=== PATIENT | male | born 1930 | race Caucasian/White ===

== ENCOUNTER 2016-10-18 10:06 | Observation (INO) ==
[2016-10-18] MEDS ORDERED: Ondansetron 4 MG/2 ML VIAL IVP PRN (12:05)
[2016-10-18] MEDS ORDERED: Naloxone 0.4 MG/ML INJ IVP PRN (12:05)
[2016-10-18] MEDS ORDERED: *HR* LORazepam 2 MG/ML VIAL IVP PRN (12:12)
--- NOTE | 2016-10-18 12:29 | Internal Med History&Physical ---
Date of Encounter: 10/18/16 Time of Encounter: 12:00 Assessment and Plan (1) Generalized convulsive seizure Current visit: Yes Status: Acute Noted to have a single episode of generalized tonic-clonic seizure. No metabolic abnormality, no symptoms or signs of infection. CT head done in the emergency room shows no acute abnormality/bleed. Noted to have slightly elevated troponin. Continue telemetry monitoring and trend troponins. Seizure precautions. When necessary IV Ativan for recurrent seizures. EEG. Neurology consult. (2) Essential hypertension Current visit: Yes Status: Chronic Resume home medications. (3) Gout Current visit: Yes Status: Chronic Chronic gouty arthritis. Continue allopurinol. Qualifiers: Gout site: multiple sites Gout etiology: unspecified cause Chronicity: chronic Qualified Code(s): M1A.09X0 - Idiopathic chronic gout, multiple sites , without tophus (tophi) (4) GERD (gastroesophageal reflux disease) Current visit: Yes Status: Chronic Continue PPI. Qualifiers: Esophagitis presence: esophagitis presence not specified Qualified Code(s) : K21.9 - Gastro-esophageal reflux disease without esophagitis (5) Pacemaker Current visit: Yes Status: Chronic Internal Medicine - H&P: HPI Chief complaint: Seizure Admitted From: Emergency Dept Plans for Post Hospital Care: Home History of present illness: Mr. Lambert is a 85 year old male with history of hypertension, gout was brought in by family for evaluation of an episode of possible seizure-like activity. Patient was in his usual state of health until yesterday. He had nonspecific complaints of not feeling well and malaise yesterday. Patient's was woken up this morning as the patient let out a loud scream and she found him to be contracted and jerking both his hands and legs and not really responding to her. He clenched his teeth but no reported tongue bite, urinary or fecal incontinence. He continued in this state for about 10-15 minutes according to her and did not respond to being shaken, slapped on the face. EMS was called and patient calmed down and was not thrashing anymore by the time they reached. He did have some amnesia after the event, which is now improved. However, he still cannot recall the episode. No history of head injury, recent infections or antibiotic use. No new medications. He reports no chest pain, shortness of breath, palpitations or dizziness at baseline. He has no weakness in his hands or legs, no tingling or numbness, no headache or blurred vision. He did have an episode of seizure-like activity several years ago, which was thought to be due to her reaction to hydrochlorothiazide, which has been since stopped. He has never been on antiepileptic medication. Past Med Surg Social Fam HX - Past Medical History Medical history: GERD, hyperlipidemia, hypertension, SVT (Status post ablation and pacemaker placement), other (Gout) Psychiatric history: panic disorder - Past Surgical History Surgical History: herniorrhaphy (Bilateral inguinal hernia repairs), orthopedic , other (Left wrist surgery), pacemaker - Social History Smoking Status: Never smoker Alcohol use: none Drug use: none Occupational status: retired Current living situation: Home, With Family Activity Level: Independent ambulation Recent Out of Country Travel Within the Last 8 Weeks: No Exposure or Possible Exposure to Illness During Travel: No - Family History Father Hx Family Neurologic Disorders: Yes (Stroke) Internal Medicine - H&P: Meds Allopurinol [Zyloprim] 150 mg PO DAILY 10/18/16 [History] Aspirin [Ecotrin] 81 mg PO DAILY 10/18/16 [History] Calcium Carbonate/Vitamin D3 [Calcium 600 + Vit D Tablet] 1 each PO DAILY [History] Losartan [Cozaar] 50 mg PO DAILY 10/18/16 [History] Melatonin 3 mg PO HS 10/18/16 [History] Metoprolol [Lopressor] 100 mg PO BID 10/18/16 [History] Multivitamin [Multi-Day Vitamins] 1 each PO DAILY 10/18/16 [History] Omeprazole 20 mg PO Q48H 10/18/16 [History] Terazosin [Hytrin] 5 mg PO HS 10/18/16 [History] Wheat Dextrin [Benefiber] 1 each PO DAILY 10/18/16 [History] Zolpidem [Ambien] 10 mg PO HS 10/18/16 [History] Allergies acetaminophen [From Percocet] Allergy (Verified 10/18/16 08:05) See Comments hydrochlorothiazide Allergy (Verified 10/18/16 08:05) Seizure Oxycodone [From Percocet] Allergy (Verified 10/18/16 08:05) See Comments Penicillins [PCN] Allergy (Verified 10/18/16 08:05) See Comments sulfamethoxazole [From Bactrim] Allergy (Verified 10/18/16 08:05) See Comments trimethoprim [From Bactrim] Allergy (Verified 10/18/16 08:05) See Comments All Systems PM: A 10-system review of systems was performed and is negative for pertinent findings except as documented above in the HPI. - Constitutional Constitutional: no chills, no fever(s), no night sweats - EENT Eyes: no change in vision, no discharge, no pain, no photophobia Ears: no ear discharge, no ear pain, no tinnitus Nose, mouth and throat: no dysphagia, no nasal discharge, no neck pain, no sore throat - Cardiovascular Cardiovascular ROS IM: no chest pain, no diaphoresis, no dyspnea, no lightheadedness, no palpitations, no syncope - Respiratory Respiratory: no cough, no dyspnea, no wheezing, no excessive phlegm production - Gastrointestinal Gastrointestinal: no abdominal pain, no diarrhea, no hematemesis, no hematochezia, no melena, no nausea, no vomiting - Musculoskeletal Musculoskeletal ROS IM: no numbness, no tingling - Integumentary Integumentary IM: no rash, no unusual bruising - Neurological Neurological ROS: behavioral changes, confusion, convulsions - Hematologic/Lymphatic Hematologic/Lymphatic: no easy bruising - Constitutional General appearance: Present: A&O X 3, answers questions appropriately - Head Head exam: Present: atraumatic, normocephalic - Eye Eye exam: Present: PERRL, conjuntiva pink, sclera anicteric Pupils: Present: PERRL - Neck Neck exam general surgery: Present: supple, trachea midline. Absent: lymphadenopathy - Respiratory Respiratory exam: Present: CTAB. Absent: accessory muscle use, rales, rhonchi, wheezes - Cardiovascular Cardiovascular exam: Present: RRR, +S1, +S2. Absent: diastolic murmur, gallop, rubs, systolic murmur - GI/Abdominal GI/Abdominal exam: Present: normal bowel sounds, soft, no peritoneal signs. Absent: distended, tenderness - Extremities Exam Extremities exam: Present: full ROM, warm, radial pulses palpable and symetrical. Absent: calf tenderness, cyanotic, pedal edema - Neurological Exam Neurological exam: Present: CN II-XII intact, oriented X3, no focal deficits. Absent: pronater drift, facial droop, speech deficit - Skin Skin exam: Present: dry, intact Internal Med - H&P Results - EKG Data -: EKG Interpreted by Myself - EKG Data Prior EKG available for review: yes When compared to previous EKG: there is no significant change EKG comments: 10/18/16 14:45 Ventricular paced rhythm
--- NOTE | 2016-10-18 13:03 | Neurology - Consult Note ---
<Sean De - Last Filed: 10/18/16 13:41> Date of Encounter: 10/18/16 Time of Encounter: 13:00 Assessment and Plan (1) Generalized convulsive seizure Current Visit: Yes Status: Acute Patient's story seems concerning for a generalized tonic-clonic seizure. reports convulsions of the upper and lower extremities with rigidity. Also reports he was unresponsive during this time. Patient appeared postictal to her after the event. No tongue biting, loss of bowel or bladder function. He is currently at his baseline. CT scan in the emergency department shows no acute abnormalities. His lab work is unremarkable and metabolic etiology of his symptoms seems less likely. He has not felt well for the last few days but he was afebilre in the emergency department with a normal white count and no nuchal rigidity so suspicion of infectious etiology is low as well. Will start Keppra 250mg BID. Will discuss with Dr. Gutierrez for further recommendations. History of Present Illness Chief complaint: Seizure-like activity HPI: Mr. Lambert is a 85 year old male history of hypertension, hyperlipidemia, gout , status post ablation for atrial fibrillation who presents to the hospital as a transferred to seizure-like activity. Patient is accompanied by who reports that around 06 100 this morning the patient rolled over during his sleep and woke her up. She reports that roughly 2 minutes later he displayed convulsions of his upper and lower extremities and appeared rigid. She also states he was making noise but was not verbalizing. She reports that he was unresponsive to her and that his eyes were shut. She reports the symptoms lasted for roughly 5-6 minutes and abated on their own. There was no loss of bowel or bladder function. She does report that he was confused up to 30 minutes after the event not knowing where he was what was going on. Patient has no recollection of the event until he was placed in the ambulance. He was taken to emergency department where he had basic labs and a CT scan of the head which was unremarkable for acute findings. Patient transferred for further evaluation. Neurology consulted due to seizure-like activity. He reports that he had what they thought was a seizure in 2010. He reports he started hydrochlorothiazide and 4 days later he developed shaking of his body. He was conscious during this and the medication was stopped and he had no recurrence of symptoms. They report that their son has a history of epilepsy as a child and was medicated until in his teens. He reports that over the last week he has had a head cold with cough and sneezing. No fevers. Reports yesterday he just felt tired and weak. He currently states he feels back to normal and agrees with this. He denies headaches, visual changes, numbness, tingling, weakness, neck pain. Past Med Surg Social Fam HX - Past Medical History Attestation: Yes The following information was validated with the patient. Source: patient Medical history: hyperlipidemia, hypertension Psychiatric history: panic disorder - Social History Smoking Status: Never smoker Alcohol use: none Drug use: none Medications and Allergies Allopurinol [Zyloprim] 150 mg PO DAILY 10/18/16 [History] Aspirin [Ecotrin] 81 mg PO DAILY 10/18/16 [History] Calcium Carbonate/Vitamin D3 [Calcium 600 + Vit D Tablet] 1 each PO DAILY [History] Losartan [Cozaar] 50 mg PO DAILY 10/18/16 [History] Melatonin 3 mg PO HS 10/18/16 [History] Metoprolol [Lopressor] 100 mg PO BID 10/18/16 [History] Multivitamin [Multi-Day Vitamins] 1 each PO DAILY 10/18/16 [History] Omeprazole 20 mg PO Q48H 10/18/16 [History] Terazosin [Hytrin] 5 mg PO HS 10/18/16 [History] Wheat Dextrin [Benefiber] 1 each PO DAILY 10/18/16 [History] Zolpidem [Ambien] 10 mg PO HS 10/18/16 [History] Allergies acetaminophen [From Percocet] Allergy (Verified 10/18/16 08:05) See Comments hydrochlorothiazide Allergy (Verified 10/18/16 08:05) Seizure Oxycodone [From Percocet] Allergy (Verified 10/18/16 08:05) See Comments Penicillins [PCN] Allergy (Verified 10/18/16 08:05) See Comments sulfamethoxazole [From Bactrim] Allergy (Verified 10/18/16 08:05) See Comments trimethoprim [From Bactrim] Allergy (Verified 10/18/16 08:05) See Comments All Systems: A 10-system review of systems was performed and is negative for pertinent findings except as documented above in the HPI. - Constitutional Constitutional ROS IM: weakness, no fever(s) - Cardiovascular Cardiovascular ROS IM: no chest pain - Respiratory Respiratory IM: no cough - Neurological Neurological ROS: confusion (Has returned to baseline), convulsions, tremor(s), weakness, no abnormal speech, no dizziness, no focal weakness, no headache(s), no loss of vision, no numbness, no paresthesias, no sensory deficit Physical Examination - Constitutional General appearance: comfortable - Neurologic Sensorimotor examination: intact Detailed motor examination: grossly full strength in all extremities Detailed sensory examination: intact Mental Status Examination: awake, alert, oriented to person, oriented to place, oriented to time, follows commands appropriately, answers questions appropriately, no aphasia Cranial nerve examination: PERRL, EOMI, sensory to face intact, mastication intact, no facial asymmetry is present, no dysarthria, hearing is intact symmetrically Cerebellar examination: no dysmetria, performs finger to nose and heel to fernandez symmetrically without ataxia Results - Diagnostic Findings Additional findings: CT scan head Consult Discharge Plan - Plan Referrals: Benedicto Rae MD [Primary Care Provider] - <Balwinder Gutierrez I - Last Filed: 10/19/16 13:12> Date of Encounter: 10/18/16 Assessment and Plan (1) Generalized convulsive seizure Current Visit: Yes Status: Acute Pt seen and examined agree with Dr De , findings and documentations, pt has history of one remote seizure in past, no focal findings on exam, description seem to be typical of Seizures, discussed with pt and , i think its reasonable to be on AEDS, will start on KEPPRA 250 mg po bid, increase to 500 BID after one week we can see him back in office Mikal Gutierrez MD History of Present Illness HPI: Mr. Lambert is a 85 year old male All Systems: A 10-system review of systems was performed and is negative for pertinent findings except as documented above in the HPI. Physical Examination - Vital Signs Vital Signs: Initial Vital Signs Temp Pulse Resp BP Pulse Ox 97.9 F 63 15 133/77 96 10/18/16 12:00 10/18/16 12:00 10/18/16 12:00 10/18/16 12:00 10/18/16 12:00 Results - Laboratory Findings CBC and BMP: 10/19/16 01:04 10/19/16 01:04 Abnormal lab findings: Abnormal lab results WBC 11.5 K/mcL (4.3-11.1) H 10/19/16 01:04 RBC 4.15 M/mcL (4.19-5.50) L 10/19/16 01:04 Hgb 12.8 g/dL (12.9-16.9) L 10/19/16 01:04
[2016-10-18] MEDS: levETIRAcetam 250 MG TABLET PO SCH (17:22)
[2016-10-18] MEDS: Metoprolol 100 MG TABLET PO SCH (20:50)
[2016-10-19 01:14] LABS: Basophils % 0.3 %; Eosinophils # 0.3 K/mcL (0.0-0.6); Eosinophils % 2.6 %; Hematocrit 38.1 % (37.5-50.1); Hemoglobin 12.8 g/dL (12.9-16.9); Immature Granulocytes % 0.4 % (0-4); Lymphocytes # 1.7 K/mcL (0.6-4.6); Lymphocytes % 14.7 %; Mean Corpuscular HGB Conc 33.6 g/dL (31.6-35.5); Mean Corpuscular Hemoglobin 30.8 pg (28.0-33.3); Mean Corpuscular Volume 91.8 fL (83.0-100.0); Mean Platelet Volume 10.2 fL (9.4-12.4); Monocytes # 1.3 K/mcL (0.0-1.3); Monocytes % 11.1 %; Neutrophils # 8.1 K/mcL (1.6-8.9); Platelet Count 169 K/mcL (140-400); Red Blood Count 4.15 M/mcL (4.19-5.50); Red Cell Distribution Width 12.5 % (11.5-14.5); Segmented Neutrophils % 70.9 %
[2016-10-19 01:27] LABS: BUN/Creatinine Ratio 14 (6-26); Blood Urea Nitrogen 16 mg/dL (8-26); Calcium 8.6 mg/dL (8.6-10.8); Carbon Dioxide 23 mEq/L (19-29); Chloride 108 mEq/L (98-109); Glucose 98 mg/dL (70-99); Magnesium 2.1 mg/dL (1.6-2.6); Osmolality,Calculated 289 (280-300); Phosphorous 2.8 mg/dL (2.3-4.7); Potassium 3.7 mEq/L (3.5-4.5); Sodium 139 mEq/L (136-145); eGFR For African Americans > 60 (> 60); eGFR For Non-African Americans > 60 (> 60)
[2016-10-19] MEDS: levETIRAcetam 250 MG TABLET PO SCH ×2 (06:32→17:39)
[2016-10-19] MEDS: Cholecalciferol (D-3) 1,000 UNIT TABLET PO SCH (08:57)
[2016-10-19] MEDS: Aspirin Enteric Coated 81 MG Tablet PO SCH (08:57)
[2016-10-19] MEDS: Multivit/Ca/Min/Fe/FA 1 TAB TABLET PO SCH (09:00)
[2016-10-19] MEDS: Metoprolol 100 MG TABLET PO SCH ×2 (09:00→20:57)
--- NOTE | 2016-10-19 09:19 | Internal Med Progress Note ---
Date of Encounter: 10/19/16 Time of Encounter: 09:14 - Assessment and plan (1) Generalized convulsive seizure Current Visit: Yes Status: Acute Assessment and plan: Generalized Convulsive Seizure: - ?Second episode. First was episode was many years back. - Was in post ictal state. - Underwent imaging of the head. - EKG: WNL - Evaluated by Neuro and underwent EEG: no seizure like activity noted. - started on Keppra 250 mg BID now. - will increase to 500 mg BID in 1 week. - follow up with Neuro in 2 weeks as outpatient. - home: late today or early tomorrow if he is more coherent in speech and thought process. (2) Essential hypertension Current Visit: Yes Status: Chronic Assessment and plan: stable and will continue home medications (3) Gout Current Visit: Yes Status: Chronic Assessment and plan: will continue home meds Qualifiers: Gout site: multiple sites Gout etiology: unspecified cause Chronicity: chronic Qualified Code(s): M1A.09X0 - Idiopathic chronic gout, multiple sites , without tophus (tophi) (4) DVT prophylaxis Current Visit: Yes Status: Acute Assessment and plan: SCD - Subjective Interval history: patient seen and examined. still drowsy answers questions but not coherent with thought process. - Constitutional Vitals: Temp Pulse Resp BP Pulse Ox 97.9 F 63 16 159/81 97 10/19/16 07:44 10/19/16 07:44 10/19/16 07:44 10/19/16 07:44 10/19/16 07:44 General appearance: Present: A&O X 3, pleasant, no acute distress - Head Head exam: Present: atraumatic, normocephalic - Eye Eye exam: Present: PERRL, conjuntiva pink, sclera anicteric Pupils: Present: PERRL - Neck Neck exam general surgery: Present: supple, trachea midline. Absent: lymphadenopathy - Respiratory Respiratory exam: Present: CTAB. Absent: accessory muscle use, rales, rhonchi, wheezes - Cardiovascular Cardiovascular exam: Present: RRR, +S1, +S2. Absent: diastolic murmur, gallop, rubs, systolic murmur - GI/Abdominal GI/Abdominal exam: Present: normal bowel sounds, soft, no peritoneal signs. Absent: distended, tenderness - Extremities Exam Extremities exam: Present: warm, radial pulses palpable and symetrical. Absent : calf tenderness, cyanotic, pedal edema - Neurological Exam Neurological exam: Present: CN II-XII intact, oriented X3, no focal deficits. Absent: pronater drift, facial droop, speech deficit - Skin Skin exam: Present: dry, intact Internal Medicine: Result - Labs CBC & Chem 7: 10/19/16 01:04 10/19/16 01:04 Labs: Short CBC 10/19/16 Range/Units 01:04 WBC 11.5 H (4.3-11.1) K/mcL Hgb 12.8 L (12.9-16.9) g/dL Hct 38.1 (37.5-50.1) % Plt Count 169 (140-400) K/mcL Neutrophils # 8.1 (1.6-8.9) K/mcL BMP 10/19/16 01:04 Sodium 139 Potassium 3.7 Chloride 108 Carbon Dioxide 23 BUN 16 Creatinine 1.12 Glucose 98 Calcium 8.6 Cardiac Enzymes 10/18/16 10/18/16 10/19/16 Range/Units 12:42 18:42 01:04 Troponin I 0.00 0.00 0.01 (0-0.03) ng/mL Consult Discharge Plan - Plan Referrals: Benedicto Rae MD [Primary Care Provider] -
--- NOTE | 2016-10-19 13:14 | EEG/EMG/Oth Biometrics Report ---
EEG Procedure Report Date of procedure: 10/18/16 EEG Procedure: Routine EEG Procedure Note: pt with generalized convulsion. Routine EEG Routine 18-channel digital EEG was obtained to rule out any seizure activity or focal abnormalities. FINDINGS: Background rhythm during awake stage shows well-organized, well- developed, average voltage 8 to 9 hertz alpha activity in the posterior regions. It blocks with eye opening and it is bilaterally synchronous and symmetrical. No [id number] discharges or any lateralizing abnormalities are seen. Photic stimulation did not produce any abnormalities. Hyperventilation was not performed. No abnormalities were found during the procedure. Intermittent EMG artifacts were seen. Stage II sleep was not achieved. IMPRESSION: Normal awake study. No epileptiform discharges or any other paroxysmal activities or focal abnormalities seen. Clinical correlation is recommended. note that normal EEG does not exclude the diagnosis of seizures or epilepsy clinical correlation suggested Balwinder Gutierrez MD
[2016-10-20] MEDS: levETIRAcetam 250 MG TABLET PO SCH (05:47)
[2016-10-20 07:02] VITALS: BP 155/82
[2016-10-20] MEDS: Cholecalciferol (D-3) 1,000 UNIT TABLET PO SCH (07:47)
[2016-10-20] MEDS: Aspirin Enteric Coated 81 MG Tablet PO SCH (07:47)
[2016-10-20] MEDS: Multivit/Ca/Min/Fe/FA 1 TAB TABLET PO SCH (07:47)
[2016-10-20] MEDS: Metoprolol 100 MG TABLET PO SCH (07:48)
--- NOTE | 2016-10-20 08:06 | Discharge Summary ---
Date of Encounter: 10/20/16 Time of Encounter: 08:03 - Discharge Diagnosis (1) Generalized convulsive seizure Priority: Primary Status: Acute (2) Essential hypertension Priority: Secondary Status: Chronic (3) Gout Priority: Secondary Status: Chronic Qualifiers: Gout site: multiple sites Gout etiology: unspecified cause Chronicity: chronic Qualified Code(s): M1A.09X0 - Idiopathic chronic gout, multiple sites , without tophus (tophi) (4) DVT prophylaxis Priority: Secondary Status: Acute - Discharge Medications Prescriptions: LevETIRAcetam [Keppra] 250 mg PO Q12HR #30 tablet Home Medications: Allopurinol [Zyloprim] 150 mg PO DAILY 10/18/16 [History] Aspirin [Ecotrin] 81 mg PO DAILY 10/18/16 [History] Calcium Carbonate/Vitamin D3 [Calcium 600 + Vit D Tablet] 1 each PO DAILY [History] Losartan [Cozaar] 50 mg PO DAILY 10/18/16 [History] Melatonin 3 mg PO HS 10/18/16 [History] Metoprolol [Lopressor] 100 mg PO BID 10/18/16 [History] Multivitamin [Multi-Day Vitamins] 1 each PO DAILY 10/18/16 [History] Omeprazole 20 mg PO Q48H 10/18/16 [History] Terazosin [Hytrin] 5 mg PO HS 10/18/16 [History] Wheat Dextrin [Benefiber] 1 each PO DAILY 10/18/16 [History] Zolpidem [Ambien] 10 mg PO HS 10/18/16 [History] LevETIRAcetam [Keppra] 250 mg PO Q12HR #30 tablet 10/20/16 [Rx] Allergies/Adverse Reactions: Allergies acetaminophen [From Percocet] Allergy (Verified 10/18/16 08:05) See Comments hydrochlorothiazide Allergy (Verified 10/18/16 08:05) Seizure Oxycodone [From Percocet] Allergy (Verified 10/18/16 08:05) See Comments Penicillins [PCN] Allergy (Verified 10/18/16 08:05) See Comments sulfamethoxazole [From Bactrim] Allergy (Verified 10/18/16 08:05) See Comments trimethoprim [From Bactrim] Allergy (Verified 10/18/16 08:05) See Comments Date of admission: 10/18/16 11:55 Primary care physician: Benedicto Rae MD Consults: 10/18/16 12:08 Consult to Neurology [CONS] Routine Consulting Provider: [facility] Reason for Consult: SEIZURE Call Completed: Yes 10/18/16 14:16 Consult to Interpret Exam [CONS] Routine Consulting Provider: Balwinder Gutierrez I Consult to Interpret Exam: Interpret EEG Discharging clinician: Neftali Frazier - Patient Status Disposition: Home, Self-Care Condition: Good Functional capacity at discharge: independent ambulation Overall status at discharge: patient is progressing back to baseline - Discharge Instructions Follow Up With: Benedicto Rae MD [Primary Care Provider] - Balwinder Gutierrez MD [Partnered Physician] - - Diet and Activity Activity: increase activity as tolerated Diet: low fat, low cholesterol Interval History: Mr. Lambert is a 85 year old male with history of hypertension, gout was brought in by family for evaluation of an episode of possible seizure-like activity. Patient was in his usual state of health until yesterday. He had nonspecific complaints of not feeling well and malaise yesterday. Patient's was woken up this morning as the patient let out a loud scream and she found him to be contracted and jerking both his hands and legs and not really responding to her. He clenched his teeth but no reported tongue bite, urinary or fecal incontinence. He continued in this state for about 10-15 minutes according to her and did not respond to being shaken, slapped on the face. EMS was called and patient calmed down and was not thrashing anymore by the time they reached. He did have some amnesia after the event, which is now improved. However, he still cannot recall the episode. No history of head injury, recent infections or antibiotic use. No new medications. He reports no chest pain, shortness of breath, palpitations or dizziness at baseline. He has no weakness in his hands or legs, no tingling or numbness, no headache or blurred vision. He did have an episode of seizure-like activity several years ago, which was thought to be due to her reaction to hydrochlorothiazide, which has been since stopped. He has never been on antiepileptic medication Hospital course: Was hospitalized. He was placed on seizure precautions. Neurology was consulted. CT scan of the brain was negative for any infarct, bleed or any of mobility. EEG was done. Preliminary report says there were no activity of seizures. Neurology recommended Keppra 250 mg twice a day. Neurology will follow up hypertension within a one-week and then gradually will increase the Keppra to 500 mg twice a day. Patient lives at home with his . Patient is independent and ambulate well. Patient can walk comfortably this morning and he kept his balance well. Patient's gait is normal and he did not have any abnormality in terms of keeping his balance. Patient at length regarding the new medication is initiated. Side effects explained.He verbalize understanding. Plan Patient can go home today. He will follow-up with his PCP in one week. Patient will have follow-up with the neurology in 1 week. QUESTIONS answered at the time of discharge. Patient does not have any questions, concerns or any suggestion at the time of discharge. - Time Spent with Patient Total time spent providing and/or coordinating discharge services: - Constitutional Vitals: Temp Pulse Resp BP Pulse Ox 97.9 F 61 16 155/82 94 L 10/20/16 07:02 10/20/16 07:02 10/20/16 07:02 10/20/16 07:02 10/20/16 07:02 General appearance: Present: A&O X 3, pleasant, no acute distress - Head Head exam: Present: atraumatic, normocephalic - Eye Eye exam: Present: PERRL, conjuntiva pink, sclera anicteric Pupils: Present: PERRL - Neck Neck exam general surgery: Present: supple, trachea midline. Absent: lymphadenopathy - Respiratory Respiratory exam: Present: CTAB. Absent: accessory muscle use, rales, rhonchi, wheezes - Cardiovascular Cardiovascular exam: Present: RRR, +S1, +S2. Absent: diastolic murmur, gallop, rubs, systolic murmur - GI/Abdominal GI/Abdominal exam: Present: normal bowel sounds, soft, no peritoneal signs. Absent: distended, tenderness - Extremities Exam Extremities exam: Present: warm, radial pulses palpable and symetrical. Absent : calf tenderness, cyanotic, pedal edema - Neurological Exam Neurological exam: Present: CN II-XII intact, oriented X3, no focal deficits. Absent: pronater drift, facial droop, speech deficit - Skin Skin exam: Present: dry, intact
== END 2016-10-20 10:00 | disposition home or self-care (01) ==
LOC: 3BNU
PROVIDERS: ADMIT Nurse Practitioner Family; ATTEND Nurse Practitioner Family

== ENCOUNTER 2022-07-24 02:43 | Inpatient (IN) ==
[2022-07-24] MEDS ORDERED: Ondansetron ODT 4 MG TAB.RAPDIS SL PRN (03:48)
[2022-07-24] MEDS ORDERED: Naloxone 0.4 MG/ML INJ IVP PRN (03:48)
[2022-07-24] MEDS ORDERED: Melatonin 3 MG TABLET PO PRN (03:48)
[2022-07-24] MEDS ORDERED: Nitroglycerin 0.4 MG TAB.SUBL SL PRN (03:50)
[2022-07-24] MEDS ORDERED: D5% in Water 1,000 ML IVC PRN (04:04)
[2022-07-24] MEDS ORDERED: Dextrose Gel 15 GM/37.5 ML TUBE PO PRN ×2 (04:04)
[2022-07-24] MEDS ORDERED: *HR* Dextrose 50 % in Water (Syg) 50 ML SYRINGE IVP PRN (04:04)
[2022-07-24] MEDS ORDERED: Aspirin 81 MG TAB.CHEW PO SCH (09:00)
[2022-07-24 09:16] LABS: Chol/HDL Ratio 3.3 (0-4.9); Magnesium 1.9 mg/dL (1.6-2.6); Phosphorous 2.1 mg/dL (2.7-4.5); Potassium 3.6 mEq/L (3.5-5.1); Thyroid Stimulating Hormone 2.419 mcIU/mL (0.340-5.600); Troponin I 0.34 ng/mL (< 0.04)
[2022-07-24 11:35] LABS: Estimated Average Glucose 103 mg/dl; Hemoglobin A1C 5.2 %
[2022-07-24] MEDS ORDERED: *HR* Heparin 5,000 UNIT/ML VIAL IVP ONE (13:31)
[2022-07-24] MEDS ORDERED: *HR* Heparin 5,000 UNIT/ML VIAL IVP PRN ×2 (13:31)
[2022-07-24] MEDS ORDERED: Heparin 25,000UNIT/250ML 1/2NS 25,000 UNIT/250 ML IV.SOLN IVC SCH (13:45)
[2022-07-24 14:18] LABS: Hematocrit 38.5 % (37.5-50.1); Hemoglobin 13.4 g/dL (12.9-16.9); Mean Corpuscular HGB Conc 34.8 g/dL (31.6-35.5); Mean Corpuscular Hemoglobin 32.5 pg (28.0-33.3); Mean Corpuscular Volume 93.4 fL (83.0-100.0); Mean Platelet Volume 10.6 fL (9.4-12.4); Platelet Count 164 K/mcL (140-400); Red Blood Count 4.12 M/mcL (4.19-5.50); Red Cell Distribution Width 12.7 % (11.5-14.5); White Blood Count 9.1 K/mcL (4.3-11.1)
[2022-07-24 14:29] LABS: Heparin anti-factor XA UFH < 0.04 IU/mL (0.30-0.70)
[2022-07-24 14:30] LABS: Prothrombin Time 11.1 Seconds (9.4-12.1)
[2022-07-24] MEDS ORDERED: Heparin 1,000 UNITS/500 mL 500 ML ONE (14:36)
[2022-07-24] MEDS ORDERED: *HR* FentaNYL (PF) 100 MCG/2 ML VIAL ONE (14:36)
[2022-07-24] MEDS ORDERED: 0.9 % Sodium Chloride 1,000 ML ONE (14:36)
[2022-07-24] MEDS ORDERED: *HR* Midazolam HCl 2 MG/2 ML VIAL ONE (14:36)
[2022-07-24] MEDS ORDERED: *HR* Heparin 10,000 UNIT/10 ML VIAL ONE (14:36)
[2022-07-24] MEDS ORDERED: Nitroglycerin 1,000 MCG/5 ML VIAL IV ONE (14:37)
[2022-07-24] MEDS ORDERED: Iopamidol - 370 200 ML INFUS..BTL ONE (14:37)
[2022-07-24] MEDS ORDERED: Protamine Sulfate 50 MG/5 ML VIAL IVP ONE (15:39)
[2022-07-25] MEDS ORDERED: *HR* Dextrose 50 % in Water (Syg) 50 ML SYRINGE IVP PRN (08:33)
[2022-07-25] MEDS ORDERED: D5% in Water 1,000 ML IVC PRN (08:33)
[2022-07-25] MEDS ORDERED: Dextrose Gel 15 GM/37.5 ML TUBE PO PRN ×2 (08:33)
[2022-07-25] MEDS: Metoprolol XL (24 HR) Succ 50 MG TAB.ER.24H PO SCH (09:10)
[2022-07-25] MEDS: Aspirin Enteric Coated 81 MG Tablet PO SCH (09:10)
[2022-07-25] MEDS: DilTIAZem CD (24hr) 240 MG CAP.ER.24H PO SCH (09:10)
[2022-07-25 09:12] LABS: Hematocrit 39.8 % (37.5-50.1); Hemoglobin 13.5 g/dL (12.9-16.9); Mean Corpuscular HGB Conc 33.9 g/dL (31.6-35.5); Mean Corpuscular Hemoglobin 31.8 pg (28.0-33.3); Mean Corpuscular Volume 93.9 fL (83.0-100.0); Mean Platelet Volume 10.2 fL (9.4-12.4); Platelet Count 164 K/mcL (140-400); Red Blood Count 4.24 M/mcL (4.19-5.50); Red Cell Distribution Width 12.9 % (11.5-14.5); White Blood Count 11.6 K/mcL (4.3-11.1)
[2022-07-25 09:32] LABS: Calcium 8.7 mg/dL (8.6-10.3); Potassium 3.4 mEq/L (3.5-5.1)
[2022-07-25] MEDS: Insulin LISPRO 300 UNITS/3 ML VIAL SUBQ SCH ×2 (10:12→16:16)
[2022-07-25] MEDS: Primidone 50 MG TABLET PO SCH ×2 (11:41→20:11)
[2022-07-25] MEDS: levETIRAcetam 250 MG TABLET PO SCH ×2 (11:41→20:11)
[2022-07-25] MEDS: *HR* Heparin 5,000 UNIT/ML VIAL SQ SCH ×2 (16:16→22:23)
[2022-07-25] MEDS ORDERED: Insulin LISPRO 300 UNITS/3 ML VIAL SUBQ SCH (21:00)
[2022-07-26 03:27] VITALS: BP 183/89; PULSE 89; TEMP 97.8; O2SAT 95
[2022-07-26] MEDS: levETIRAcetam 250 MG TABLET PO SCH (08:09)
[2022-07-26] MEDS: DilTIAZem CD (24hr) 240 MG CAP.ER.24H PO SCH (08:09)
[2022-07-26] MEDS: Primidone 50 MG TABLET PO SCH (08:09)
[2022-07-26] MEDS: Aspirin Enteric Coated 81 MG Tablet PO SCH (08:10)
[2022-07-26] MEDS: Metoprolol XL (24 HR) Succ 50 MG TAB.ER.24H PO SCH (08:10)
[2022-07-26] MEDS ORDERED: allopurinoL 300 MG TABLET PO SCH (09:00)
== END 2022-07-26 09:40 | disposition home or self-care (01) | DRG 247 ==
LOC: 3BNU → SUATTDRO 03:38 → 2NNU 21:40
PROVIDERS: ADMIT Internal Medicine; ATTEND Internal Medicine